=== PATIENT | female | born 1960 | race Caucasian/White ===

== ENCOUNTER 2018-01-16 09:01 | Emergency (ER) | payer OTHER ==
[~2018-01-16] VITALS: Ht 167.6 cm; Wt 93.0 kg
[2018-01-16] MEDS ORDERED: CLARITIN-D 241 EACH PO (09:24)
[2018-01-16] MEDS ORDERED: BENTYL10 MG/1 ML PO (09:24)
[2018-01-16 10:55] VITALS: BP 139/78
== END 2018-01-16 11:13 | disposition home or self-care (01) ==
LOC: FSED 09:01
DX: R42 Dizziness and giddiness (principal); R53.1 Weakness
CPT/HCPCS: 70450; 71046; 80053; 81003; 82553; 84484; 85025; 99284

== ENCOUNTER 2018-10-25 17:45 | Emergency (ER) | payer BC, OTHER ==
[~2018-10-25] VITALS: Ht 167.6 cm; Wt 93.0 kg
[~2018-10-25 17:45] MED LIST: BENTYL10 MG/1 ML PO; CLARITIN-D 241 EACH PO
--- OUTSIDE RECORDS SUMMARY | 2018-10-25 17:48 | XMS REPORT | Clinical Summary ---
Author Author [facility] Address Unknown Phone Unavailable Care Team Providers Care Liner Man Name Role Phone Allen Mckeon DO PCP Allergies Not on File Medications Not on file Active Problems Not on file Social History Date Tobacco Use Types Packs/Day Years Used Never Assessed Sex Assigned at Date Recorded Not on file Industry Job Start Date Occupation Not on file Not on file Not on file Travel End Travel History Travel Start No recent travel history available. Last Filed Vital Signs Not on file Plan of Treatment Health Maintenance Due Date Last Done Comments CERVICAL CANCER SCREENING 02/05/1980 BREAST CANCER SCREENING 2009 COLON CANCER SCREENING 2009 SHINGLES VACCINES (#1) 2009 INFLUENZA VACCINE 01/28/2019 Results Not on fileafter 10/24/2017 Insurance Payer Benefit Subscriber ID Type Phone Address Plan / Group CIGNA CIGNA xxxxxxxxx HMO HMO/POS Advance Directives Patient has advance care planning documents on file. For more information, christiano atkins contact: Cam Romero [address] [place] [id number]
--- OUTSIDE RECORDS SUMMARY | 2018-10-25 17:48 | XMS REPORT | Clinical Summary ---
Author Author [facility] Address Unknown Phone Unavailable Care Team Providers Care Health Care Aide Name Role Phone Toño Mckeonald Fausto PCP Allergies Comments Active Allergy Reactions Severity Noted Date Penicillins Hives 11/17/2015 Medications End Date Status Medication Sig Dispensed Refills Start Date Active dicyclomine (BENTYL) 20 Take 20 mg by 0 mg tablet mouth every 6 (six) hours. Active HA[place]ORN HINTON ORAL Take by 0 mouth. Active Missing or Non-Formulary healthy liver 0 Medication natural product . Active multivitamin with Take 1 tablet 0 minerals tablet by mouth daily. Active cyanocobalamin 1000 MCG Take 1,000 0 tablet mcg by mouth daily. Active pseudoephedrine-guaifenes Take 1 tablet 0 in (MUCINEX D) 60-600 mg by mouth per tablet every 12 (twelve) hours. Active Problems Problem Noted Date Biliary colic 01/17/2016 Social History Date Tobacco Use Types Packs/Day Years Used Former Smoker Smokeless Tobacco: Never Used Comments: quit smoking many yrs ago Alcohol Use Drinks/Week oz/Week Comments No Sex Assigned at Date Recorded Not on file Industry Job Start Date Occupation Not on file Not on file Not on file Travel End Travel History Travel Start No recent travel history available. Last Filed Vital Signs Not on file Plan of Treatment Not on file Results Not on fileafter 10/24/2017 Insurance Payer Benefit Subscriber ID Type Phone Address Plan / Group HU[employer] - [employer] HUMANA HMO xxxxxxxxx HMO/POS POS Advance Directives For more information, please contact: [facility] [address] [place] [address] Date Inactivated Comments Code Status Date Activated 01/17/2016 2:40 PM Full Code 01/17/2016 8:15 AM This code status was determined by: Patient
[2018-10-25] MEDS ORDERED: SODIUM CHLORIDE 0.9% 1000ML 1,000 ML IV STA (17:59)
[2018-10-25] MEDS ORDERED: KETOROLAC TROMETHAMINE 30 MG/ML VIAL IV ONE (18:30)
[2018-10-25] MEDS ORDERED: FAMOTIDINE 20 MG/2 ML VIAL IV ONE (18:30)
[2018-10-25] MEDS ORDERED: ONDANSETRON HCL INJ 2MG/ML 2ML 2 MG/ML VIAL IV ONE (18:30)
--- NOTE | 2018-10-25 18:56 | Diagnostic Imaging Report ---
EXAMINATION: CT of the abdomen and pelvis without contrast. TECHNIQUE: Spiral CT images of the abdomen and pelvis were performed from the lung bases to the lesser trochanters. No intravenous contrast was given per renal stone protocol. Coronal and sagittal reformatted images were obtained. COMPARISON: None. CLINICAL HISTORY:Right flank pain. Possible kidney stone. DISCUSSION: ABSENCE OF INTRAVENOUS CONTRAST DECREASES SENSITIVITY FOR DETECTION OF FOCAL LESIONS AND VASCULAR PATHOLOGY. ABDOMEN/PELVIS: LOWER THORAX: 8-9 mm triangular shaped spiculated density in the lingula, with associated linear opacities (series 2, image 3). HEPATOBILIARY: No focal hepatic lesions. No intra or extrahepatic biliary ductal dilation. GALLBLADDER: Cholecystectomy clips. SPLEEN: Mild splenomegaly, measuring 13.9 cm in AP diameter PANCREAS: No focal masses or ductal dilatation. ADRENALS: No adrenal nodules. KIDNEYS/URETERS: 5-6 mm nonobstructing calculus in the left inferior pole (series 2, image 39). No other renal or ureteral calculi, hydronephrosis or obstruction. No contour abnormalities or significant perinephric stranding. PELVIC ORGANS/BLADDER: Bladder and uterus are unremarkable. No adnexal masses. PERITONEUM/RETROPERITONEUM: No free air or fluid. LYMPH NODES: No intra-abdominal,retroperitoneal, pelvic or inguinal lymphadenopathy. VESSELS: Minimal atherosclerotic calcification of the distal abdominal aorta. GI TRACT: No bowel dilation or evidence of obstruction. Appendix is well identified and normal in caliber. No pericolonic inflammatory changes. Scattered diverticulosis of the sigmoid colon, without diverticulitis. BONES AND SOFT TISSUES: No aggressive lytic lesions. Soft tissues are grossly unremarkable. IMPRESSION: 1. 5-6 mm nonobstructing calculus in the left inferior pole. No other renal or any ureteral or bladder calculi, hydronephrosis or obstruction. 2. Sigmoid diverticulosis, without diverticulitis. 3. 8-9 mm triangular shaped spiculated density in the lingula may reflect confluent scarring, however, a spiculated nodule is also considered. If there is a prior history of smoking or other high risk factors, this may represent pulmonary neoplasm. 4. Mild splenomegaly. Signed by: Dr. Adeel Sandhu M.D. on 10/25/2018 6:52 PM
[2018-10-25] MEDS ORDERED: CIPROFLOXACIN 500 MG TAB PO ONE (19:15)
[2018-10-25 19:21] VITALS: BP 138/76
== END 2018-10-25 19:27 | disposition home or self-care (01) ==
LOC: FSED 17:45
DX: R30.0 Dysuria (principal); N30.00 Acute cystitis without hematuria; N10 Acute pyelonephritis; I10 Essential (primary) hypertension
CPT/HCPCS: 74176; 81003; 99284; J1885; J2405; J7030